=== PATIENT | male | born 1960 | race Caucasian/White ===

== ENCOUNTER 2017-05-17 07:14 | Emergency (ER) | payer BC ==
[2017-05-17] MEDS ORDERED: Metoclopramide 10 MG/2 ML SDV IVPUSH ONE (07:45)
[2017-05-17] MEDS ORDERED: Dextrose 5%-0.9% NaCl 1,000 ML IV SCH (07:45)
--- NOTE | 2017-05-17 07:45 | EDM.PDOC ---
ED HPI GENERAL MEDICAL PROBLEM - General Chief Complaint: Abdominal Pain Stated Complaint: ABDOMINAL PAIN Time Seen by Provider: 05/17/17 07:36 Source of Information: Reports: Patient History Limitations: Reports: No Limitations - History of Present Illness INITIAL COMMENTS - FREE TEXT/NARRATIVE: 57-year-old male presents to the ED with diffuse abdominal pain. He states that it came on shortly after supper on Wednesday, May 15. States it felt mostly in the right lower quadrant and subsequently has become more generalized particularly periumbilical across his abdomen. Described as a constant aching discomfort. Enough that it is no position comfortably slept very poorly the last 2 nights. Has been taking fluids but not eating much in terms of solids. He did vomit once the initial night of illness. This is mostly bilious and recently eaten food. No hematemesis. He's not had a bowel movement for 2 days. No fever associated chills. No previous abdominal surgery. He states he has a large bruise across his lower abdomen where he hit a kitchen chair back, 2 days ago. Note he is chronically anticoagulated with Coumadin due to atrial fibrillation. He has had previous ablation procedure for atrial fibrillation but still gets it intermittently. He has a defibrillator pacemaker right upper anterior chest. He states he is walking fairly well can get in and out of the vehicle fairly well without bumps in the remote hurting him. He has had no previous abdominal surgery has a history of diverticulitis 1. Onset: Gradual Onset Date: 05/15/17 Onset Time: 18:00 Duration: Hour(s): Location: Reports: Abdomen Quality: Reports: Ache Severity: Moderate Improves with: Reports: Rest Worsens with: Reports: Movement Context: Denies: Activity, Exercise, Lifting, Sick Contact, Trauma, Other Associated Symptoms: Reports: Loss of Appetite, Malaise, Nausea/Vomiting. Denies: No Other Symptoms, Confusion, Chest Pain, Cough, cough w sputum, Diaphoresis, Fever/Chills, Headaches, Rash, Seizure, Shortness of Breath, Syncope, Weakness (Vomited once the first day of illness.) Treatments TRIMMER HAND: Reports: Other (see below) (None.) Abdominal Pain Score (Numeric/FACES): 7 - Related Data Allergies Allergy/AdvReac Type Severity Reaction Status Date / Time No Known Allergies Allergy Verified 05/17/17 07:27 Home Meds: Home Meds Carvedilol 25 mg PO BID 05/17/17 [History] Cefdinir [Omnicef] 300 mg PO BID #20 cap 05/17/17 [Rx] Dofetilide 1 tab PO BID 05/17/17 [History] Lubiprostone [Amitiza] 1 tab PO BID PRN 05/17/17 [History] Lutein/Minerals/Vit A,C & E [Ocuvite] 1 tab PO DAILY 05/17/17 [History] Prednisone [IJD: predniSONE] 20 mg PO DAILY 05/17/17 [History] Warfarin Sodium [Jantoven] 2.5 mg PO ASDIRECTED 05/17/17 [History] Warfarin Sodium [Jantoven] 5 mg PO ASDIRECTED 05/17/17 [History] metroNIDAZOLE [Flagyl] 500 mg PO Q8H #21 tab 05/17/17 [Rx] Past Medical History Cardiovascular History: Reports: Arrhythmia. Denies: Afib Gastrointestinal History: Reports: Diverticulosis, Irritable Bowel Syndrome - Past Surgical History Cardiovascular Surgical History: Reports: Other (See Below) Other Cardiovascular Surgeries/Procedures: ablation, defibrillator Social & Family History - Tobacco Use Smoking Status *Q: Never Smoker - Caffeine Use Caffeine Use: Reports: None - Recreational Drug Use Recreational Drug Use: No - Living Situation & Occupation Living situation: Reports: Occupation: Employed ED ROS GENERAL - Review of Systems Review Of Systems: See Below Constitutional: Reports: Decreased Appetite. Denies: Fever, Chills, Malaise, Weakness, Fatigue, Weight Loss HEENT: Reports: No Symptoms Respiratory: Reports: No Symptoms Cardiovascular: Reports: Palpitations Endocrine: Reports: No Symptoms GI/Abdominal: Reports: No Symptoms, Abdominal Pain, Constipation (Has a history of constipation is on Amitiza.), Decreased Appetite, Nausea, Vomiting (Vomited once on the initial day of illness May 15.) : Reports: No Symptoms Musculoskeletal: Reports: No Symptoms Skin: Reports: Bruising Neurological: Reports: No Symptoms (Bruises easily due to being on Coumadin. Currently has a large bruise across his right lower abdomen.) Psychiatric: Reports: No Symptoms Hematologic/Lymphatic: Reports: No Symptoms Immunologic: Reports: No Symptoms ED EXAM, GI/ABD - Physical Exam Exam: See Below Exam Limited By: Combative/Threatening General Appearance: Alert, WD/WN, No Apparent Distress Eyes: Bilateral: Normal Appearance (No jaundice.) Throat/Mouth: Other Head: Atraumatic, Normocephalic (Tongue is dry and coated white.) Neck: Normal Inspection, Supple, Non-Tender, Full Range of Motion, Lymphadenopathy (L). No: Lymphadenopathy (R) Respiratory/Chest: No Respiratory Distress, Lungs Clear, Normal Breath Sounds, No Accessory Muscle Use Cardiovascular: Normal Peripheral Pulses, Regular Rate, Rhythm, No Edema, No Gallop, Bradycardia (58/m.) GI/Abdominal Exam: Soft (Bowel sounds are fairly active in all 4 quadrants.), Non-Tender, No Organomegaly, No Distention, Abnormal Bowel Sounds, Other (Has a large 7 cm linear ecchymoses with a 1.5 cm width right lower quadrant and evidence. He states he ran into the back of a wooden chair 3 days ago , bruises easily due to being on Coumadin.). No: Guarding, Rigid, Rebound (Male) Exam: No Hernia Back Exam: Normal Inspection, Full Range of Motion. No: CVA Tenderness (L), CVA Tenderness (R) Extremities: Normal Inspection, Non-Tender, No Pedal Edema, Normal Capillary Refill, Pedal Edema Neurological: Alert, Oriented, CN II-XII Intact, Normal Cognition, Normal Gait Psychiatric: Normal Affect, Normal Mood Skin Exam: Warm, Dry, Intact, Normal Color Course - Vital Signs Last Recorded V/S: Last Vital Signs Temp 36.2 C 05/17/17 07:23 Pulse 80 05/17/17 11:31 Resp 18 05/17/17 11:31 BP 155/93 H 05/17/17 07:23 Pulse Ox 97 05/17/17 11:31 - Orders/Labs/Meds Orders: Active Orders 24 hr Category Date Time Status Dextrose 5%-0.9% NaCl [Dextrose 5%-Normal Saline] 1,000 Med 05/17/17 07:45 Active ml IV ASDIRECTED Sodium Chloride 0.9% [Saline Flush] Med 05/17/17 08:56 Active 10 ml FLUSH ONETIME PRN Medication Orders Dextrose/Sodium Chloride (Dextrose 5%-Normal Saline) 1,000 mls @ 500 mls/hr IV ASDIRECTED LAW Last Admin: 05/17/17 07:55 Dose: 500 mls/hr Sodium Chloride (Saline Flush) 10 ml FLUSH ONETIME PRN PRN Reason: IV FLUSH Last Admin: 05/17/17 09:27 Dose: 10 ml Labs: Laboratory Tests 05/17/17 05/17/17 05/17/17 Range/Units 07:48 07:48 07:48 WBC 12.27 H (4.23-9.07) K/mm3 RBC 4.56 L (4.63-6.08) M/mm3 Hgb 14.2 (13.7-17.5) gm/L Hct 40.4 (40.1-51.0) % MCV 88.6 (79.0-92.2) fl MCH 31.1 (25.7-32.2) pg MCHC 35.1 (32.2-35.5) g/dl RDW Std Deviation 41.9 (35.1-43.9) fL Plt Count 181 (163-337) K/mm3 MPV 10.0 (9.4-12.3) fl Neutrophils % (Manual) 76 H (40-60) % Band Neutrophils % 0 (0-10) % Lymphocytes % (Manual) 12 L (20-40) % Atypical Lymphs % 0 % Monocytes % (Manual) 11 H (2-10) % Eosinophils % (Manual) 1 (0.8-7.0) % Basophils % (Manual) 0 L (0.2-1.2) Platelet Estimate Adequate RBC Morph Comment Normal PT 20.1 H (8.0-13.0) SECONDS INR 1.87 Sodium 135 L (136-145) mEq/L Potassium 3.7 (3.5-5.1) mEq/L Chloride 101 (98-107) mEq/L Carbon Dioxide 25 (21-32) mEq/L Anion Gap 12.7 (5-15) BUN 15 (7-18) mg/dL Creatinine 1.2 (0.7-1.3) mg/dL Est Cr Clr Drug Dosing 76.34 mL/min Estimated GFR (MDRD) > 60 (>60) mL/min BUN/Creatinine Ratio 12.5 L (14-18) Glucose 113 H (74-106) mg/dL Calcium 8.7 (8.5-10.1) mg/dL Total Bilirubin 0.7 (0.2-1.0) mg/dL AST 59 H (15-37) U/L ALT 59 (16-63) U/L Alkaline Phosphatase 48 (46-116) U/L C-Reactive Protein 2.8 H* (<1.0) mg/dL Total Protein 7.1 (6.4-8.2) g/dl Albumin 3.4 (3.4-5.0) g/dl Globulin 3.7 gm/dL Albumin/Globulin Ratio 0.9 L (1-2) Lipase 130 (73-393) U/L Urine Color (Yellow) Urine Appearance (Clear) Urine pH (5.0-8.0) Ur Specific Graham (1.005-1.030) Urine Protein (Negative) Urine Glucose (UA) (Negative) Urine Ketones (Negative) Urine Occult Blood (Negative) Urine Nitrite (Negative) Urine Bilirubin (Negative) Urine Urobilinogen (0.2-1.0) Ur Leukocyte Esterase (Negative) Urine RBC (0-5) /hpf Urine WBC (0-5) /hpf Ur Epithelial Cells (0-5) /hpf Urine Bacteria (FEW) /hpf Urine Mucus (FEW) /hpf 05/17/17 Range/Units 09:45 WBC (4.23-9.07) K/mm3 RBC (4.63-6.08) M/mm3 Hgb (13.7-17.5) gm/L Hct (40.1-51.0) % MCV (79.0-92.2) fl MCH (25.7-32.2) pg MCHC (32.2-35.5) g/dl RDW Std Deviation (35.1-43.9) fL Plt Count (163-337) K/mm3 MPV (9.4-12.3) fl Neutrophils % (Manual) (40-60) % Band Neutrophils % (0-10) % Lymphocytes % (Manual) (20-40) % Atypical Lymphs % % Monocytes % (Manual) (2-10) % Eosinophils % (Manual) (0.8-7.0) % Basophils % (Manual) (0.2-1.2) Platelet Estimate RBC Morph Comment PT (8.0-13.0) SECONDS INR Sodium (136-145) mEq/L Potassium (3.5-5.1) mEq/L Chloride (98-107) mEq/L Carbon Dioxide (21-32) mEq/L Anion Gap (5-15) BUN (7-18) mg/dL Creatinine (0.7-1.3) mg/dL Est Cr Clr Drug Dosing mL/min Estimated GFR (MDRD) (>60) mL/min BUN/Creatinine Ratio (14-18) Glucose (74-106) mg/dL Calcium (8.5-10.1) mg/dL Total Bilirubin (0.2-1.0) mg/dL AST (15-37) U/L ALT (16-63) U/L Alkaline Phosphatase (46-116) U/L C-Reactive Protein (<1.0) mg/dL Total Protein (6.4-8.2) g/dl Albumin (3.4-5.0) g/dl Globulin gm/dL Albumin/Globulin Ratio (1-2) Lipase (73-393) U/L Urine Color Yellow (Yellow) Urine Appearance Clear (Clear) Urine pH 6.0 (5.0-8.0) Ur Specific Graham 1.010 (1.005-1.030) Urine Protein Trace H (Negative) Urine Glucose (UA) Negative (Negative) Urine Ketones Negative (Negative) Urine Occult Blood Negative (Negative) Urine Nitrite Negative (Negative) Urine Bilirubin Negative (Negative) Urine Urobilinogen 0.2 (0.2-1.0) Ur Leukocyte Esterase Negative (Negative) Urine RBC 0-5 (0-5) /hpf Urine WBC 0-5 (0-5) /hpf Ur Epithelial Cells 0-5 (0-5) /hpf Urine Bacteria Not seen (FEW) /hpf Urine Mucus Few (FEW) /hpf Meds: Medications Generic Name Dose Route Start Last Admin Trade Name Freq PRN Reason Stop Dose Admin Dextrose/Sodium Chloride 1,000 mls @ 500 mls/hr 05/17/17 07:45 05/17/17 07:55 Dextrose 5%-Normal Saline IV 500 mls/hr ASDIRECTED LAW Administration Sodium Chloride 10 ml 05/17/17 08:56 05/17/17 09:27 Saline Flush FLUSH 10 ml ONETIME PRN Administration IV FLUSH Discontinued Medications Generic Name Dose Route Start Last Admin Trade Name Freq PRN Reason Stop Dose Admin Diatrizoate Meglum/Diatrizoate Sod 90 ml 05/17/17 08:56 05/17/17 09:27 Gastrografin 37% PO 05/17/17 08:57 90 ml ONETIME ONE Administration Cefoxitin Sodium 2 gm/ Premix 50 mls @ 100 mls/hr 05/17/17 09:34 05/17/17 09: 53 IV 05/17/17 10:03 100 mls/hr ONETIME ONE Administration Iopamidol 125 ml 05/17/17 08:56 05/17/17 09:27 Isovue-300 (61%) IVPUSH 05/17/17 08:57 110 ml ONETIME ONE Administration Meperidine HCl 50 mg 05/17/17 07:46 05/17/17 08:00 Demerol IV 05/17/17 07:47 Not Given ONETIME ONE Meperidine HCl 50 mg 05/17/17 07:57 05/17/17 07:58 Demerol IVPUSH 05/17/17 07:58 50 mg ONETIME STA Administration Meperidine HCl Confirm 05/17/17 07:51 05/17/17 08:01 Demerol Administered 05/17/17 07:52 Not Given Dose 50 mg .ROUTE .STK-MED ONE Metoclopramide HCl 10 mg 05/17/17 07:45 05/17/17 07:55 Reglan IVPUSH 05/17/17 07:46 10 mg ONETIME ONE Administration Metronidazole 500 mg 05/17/17 09:36 05/17/17 09:53 Flagyl PO 05/17/17 09:37 500 mg ONETIME ONE Administration - Radiology Interpretation Free Text/Narrative:: 57-year-old male presents to the ED for evaluation of abdominal pain. Patient developed acute onset of mostly right lower quadrant abdominal pain on the evening of May 15 after eating supper. Pain is persisted however since that time and is now become much more generalized particularly periumbilical. States it's a deep aching constant pain with some mild colicky component. Emesis the first night of illness but nothing since. He has been maintained primarily on clear fluids since that time. States he is voiding normally. Bowels have not moved for 2 days. Socially fever chills. On examination bowel sounds are active in all 4 quadrants and he has is soft to palpation with no organomegaly or peritoneal signs. Note that he is on Amitiza for irritable bowel syndrome with constipation dependency. Plan routine labs IV will be D5 normal saline at open Given Demerol 50 mg IV with Reglan 10 mg IV for pain and nausea relief. One view of the abdomen and routine labs including a lipase will be obtained - Re-Assessments/Exams Free Text/Narrative Re-Assessment/Exam: 05/17/17 08:08 KUB is essentially reveals a normal bowel gas pattern. There is air distending the colon throughout. There is a mild amount of stool in the cecum only. No bowel obstruction. Will therefore proceed with CT of the abdomen with oral and IV contrast presuming that his renal function is normal. Patient advised that we will therefore proceed with CT of the abdomen and pelvis with oral and IV contrast. 05/17/17 08:50 Labs reveal a total white count of 12.27 differential pending. Hemoglobin is good at 14.2 with hematocrit of 40.4. Platelets normal 181,000. PT is 20.1 with an INR of 1.87 i.e. slightly subtherapeutic but the patient is in sinus rhythm at this time sodium was 135 with potassium of 3.7. Chloride is 11 with a bicarbonate 25. Anion gap is 12.7. BUN is 15. Creatinine is 1.2. GFR is greater than 60. Glucose is 113 calcium is 8.7 bilirubin 0.7 AST slightly elevated at 59 ALT mildly elevated at 59 phosphatase normal at 48. C-reactive protein elevated at 2.8. Lipase normal at 1:30. 05/17/17 09:18 differential on the white count is 76% neutrophils and no bands reported. 05/17/17 09:36 CT scan of the abdomen and pelvis is back. Does reveal mild diverticulitis adjacent to the left side of the bladder. There is no signs of developing abscess. He does have a well-defined cyst within the right lobe of the left liver measuring about 4 mm. Small hiatal hernia is appreciated with reflux of gastroesophageal contrast. There are parapelvic cysts and cortical cysts are seen within both kidneys. There is a vague area of diminished enhancement is seen within the left upper kidney and within the left lower right kidney suggesting possible pyelonephritis. No retrognathia or retroperitoneal adenopathy or mesenteric abnormality is seen diffuse wall thickening is seen within the sigmoid colon this causes some luminal narrowing. Diverticulosis is seen within the sigmoid colon. He will therefore be given initial dose of cefoxitin 2 g IV as Levaquin interaction with one of his medications. I will then place him on Flagyl 500 mg orally as well. 05/17/17 10:10 urinalysis is normal. The radiate all just report is back and he does not mention diverticulitis but I think he missed the inflammation adjacent to the left side of the bladder. He does have a large peripelvic cyst on the right side but there is no clinical evidence of urinary tract infection. Patient will be discharged home on Flagyl 500 mg 3 times a day for 7 days and Omnicef 300 mg twice daily for the next 8 days as well. Departure - Departure Time of Disposition: 11:20 Disposition: Home, Self-Care 01 Condition: Fair Clinical Impression: Diverticulitis large intestine Qualifiers: Diverticulitis bleeding: without bleeding Diverticulitis complication: without perforation or abscess Qualified Code(s): K57.32 - Diverticulitis of large intestine without perforation or abscess without bleeding - Discharge Information Prescriptions: Cefdinir [Omnicef] 300 mg PO BID #20 cap metroNIDAZOLE [Flagyl] 500 mg PO Q8H #21 tab Instructions: Diverticulitis, [id number] Referrals: Talon Dominguez Jr, MD [Primary Care Provider] - Forms: ED Department Discharge Additional Instructions: Evaluation in the emergency him today in regards to gradually worsening lower abdominal pain and then diffuse abdominal pain over the last 2 and half days. [place] reveals tenderness across the lower abdomen without peritoneal signs. An x -ray of the head was within normal limits. Lab work shows a mildly elevated white blood cell count with low-grade infection suspect. CT scan of the abdomen and pelvis was therefore performed and it identifies a area of early diverticulitis involving the sigmoid colon adjacent to your bladder on the left side. Of note this area of the colon appears to be quite narrowed. May be from previous infection but a sigmoidoscopy is indicated within the next 6 weeks or so to make sure that there is nothing else going on in this area to cause a narrowing. Treatment was started in the ED with intravenous antibiotic cefoxitin. Flagyl 500 mg was also given by mouth. Treatment at home is Flagyl 500 mg by mouth 3 times daily for the next 7 days and Omnicef 300 mg twice daily for 10 days. The next tablet of this would be due at [facility]. The next tablet a Flagyl should be taken around 5 PM and again before bed tonight. Due to the possible interaction with antibiotics and your Coumadin you need a PT/INR check up on Wednesday this week to make sure that it is not super elevated. INR today is a little on the low side at 1.85. I doubt therefore that it will elevate enough on the antibodies to be problematic. - My Orders Last 24 Hours: My Active Orders 05/17/17 07:45 Dextrose 5%-0.9% NaCl [Dextrose 5%-Normal Saline] 1,000 ml IV ASDIRECTED 05/17/17 08:56 Sodium Chloride 0.9% [Saline Flush] 10 ml FLUSH ONETIME PRN - Assessment/Plan Last 24 Hours: My Active Orders 05/17/17 07:45 Dextrose 5%-0.9% NaCl [Dextrose 5%-Normal Saline] 1,000 ml IV ASDIRECTED 05/17/17 08:56 Sodium Chloride 0.9% [Saline Flush] 10 ml FLUSH ONETIME PRN
[2017-05-17] MEDS ORDERED: Meperidine PF 75 MG/ML Syringe IV ONE (07:46)
[2017-05-17] MEDS ORDERED: Meperidine PF 50 MG/ML Syringe ONE (07:51)
[2017-05-17] MEDS ORDERED: Meperidine PF 50 MG/ML Syringe IVPUSH STA (07:57)
[2017-05-17] MEDS ORDERED: Sodium Chloride 0.9% 10 ML Syringe FLUSH PRN (08:56)
[2017-05-17] MEDS ORDERED: Iopamidol 612 MG/ML 150 ML Bottle IVPUSH ONE (08:56)
[2017-05-17] MEDS ORDERED: Diatrizoate Meglumine/Diatrizoate Sodium 37% 120 ML Bottle PO ONE (08:56)
[2017-05-17] MEDS ORDERED: cefOXitin 2 GM in Premix Bag 1 BAG IV ONE (09:34)
[2017-05-17] MEDS ORDERED: metroNIDAZOLE 500 MG Tab PO ONE (09:36)
--- NOTE | 2017-05-17 10:01 | CR ---
Abdomen: Supine view of the abdomen was obtained. Comparison: No previous study. Phlebolith is seen within the pelvis. Joint space narrowing is noted within both hips. Mild degenerative change is scattered within the spine. Bowel gas pattern appears normal. No discrete soft tissue abnormality is seen. AICD is partially visualized. Impression: 1. Incidental findings. Nothing acute is seen. Diagnostic code #2
--- NOTE | 2017-05-17 10:01 | CT ---
CT abdomen and pelvis Technique: Multiple axial sections were obtained from above the dome of the diaphragm inferiorly through the pubic symphysis. Intravenous and oral contrast has been given. Delayed images were also obtained through the abdomen and pelvis. Comparison: Recent abdominal x-ray performed earlier on the same day (7:41 AM). No prior CT abdomen or pelvis exam. Findings: Visualized lung bases are clear. Minimal low-density lesion is seen within the posterior right lobe of the liver measuring about 4 mm. This most likely represents a small cyst. No additional abnormality is seen with within the liver. Small hiatal hernia is seen with gastroesophageal reflux of contrast. Spleen appears within normal limits. Adrenal glands show no nodule. Pancreas appears within normal limits. Parapelvic cysts and cortical cysts are seen within both kidneys. Vague area of diminished enhancement is seen within the left upper kidney and within the lower right kidney. Findings suggest the possibility of pyelonephritis. Aorta shows no aneurysmal dilatation. No retroperitoneal adenopathy or mesenteric abnormalities are seen. Diffuse wall thickening is seen within the sigmoid colon. This causes luminal narrowing. Diverticulosis is seen within the sigmoid colon. Delayed images shows contrast within nondilated ureters and bladder. Impression: 1. Areas of diminished enhancement within both kidneys. Findings are suspicious for change from pyelonephritis. 2. Significant bowel wall thickening within the sigmoid colon with diverticulosis. Bowel wall thickening may relate to chronic diverticulosis but endoscopy is recommended to rule out neoplasm. 3. Other incidental findings. Diagnostic code #9
== END 2017-05-17 11:25 | disposition home or self-care (01) ==
LOC: JD.ED 07:14
DX: K57.32 Diverticulitis of large intestine without perforation or abscess without bleeding (principal); Z79.899 Other long term (current) drug therapy
CPT/HCPCS: 36415; 74018; 74177; 80053; 81001; 83690; 85025; 85610; 86140; 96361; 96365; 96375; 99285; A9270; J0694; J2175; J2765; J7042; J7050; Q9963; Q9967; 99284

== ENCOUNTER 2017-06-06 16:44 | Emergency (ER) | payer BC ==
[2017-06-06] MEDS ORDERED: Sodium Chloride 0.9% 1,000 ML IV STA (17:07)
[2017-06-06] MEDS ORDERED: Sodium Chloride 0.9% 10 ML Syringe FLUSH PRN (17:07)
[2017-06-06] MEDS ORDERED: Ondansetron 4 MG/2 ML SDV IVPUSH ONE (17:07)
[2017-06-06] MEDS ORDERED: HYDROmorphone 0.5 MG/0.5 ML SYRINGE IVPUSH ONE (17:09)
--- NOTE | 2017-06-06 18:34 | EDM.PDOC ---
ED HPI GENERAL MEDICAL PROBLEM - General Chief Complaint: Abdominal Pain Stated Complaint: STOMACH PROBLEMS Time Seen by Provider: 06/06/17 17:00 Source of Information: Reports: Patient History Limitations: Reports: No Limitations - History of Present Illness INITIAL COMMENTS - FREE TEXT/NARRATIVE: The patient presents with lower abdominal pain. This started this morning. He also has nausea and vomiting and some diarrhea. He was seen here about 3 weeks ago on 05/17/17. He had a CT done and he was found to have diverticulitis. He had inflammation of his sigmoid colon with diverticulosis. His kidneys also showed signs of pyelonephritis but his urine was negative and he had no flank pain. He was on antibiotics and he got better but the pain was not gone. The pain increased this morning. He has no fever but he did have some chills. He has no fever, chills or cough. He has no dysuria. He has a pacemaker and he is on warfarin for intermittent A-fib. He had an ablation months ago and he is still on the warfarin until they know he is out of the A-fib for good. The patient had a colonoscopy about 5 1/2 years ago and it was fine. Onset: Gradual Duration: Hour(s): Location: Reports: Abdomen Quality: Reports: Sharp Severity: Moderate Improves with: Reports: None Worsens with: Reports: None Associated Symptoms: Reports: Fever/Chills, Nausea/Vomiting. Denies: Chest Pain , Cough, Headaches, Shortness of Breath lower abdomen Pain Score (Numeric/FACES): 10 - Related Data Allergies Allergy/AdvReac Type Severity Reaction Status Date / Time No Known Allergies Allergy Verified 06/06/17 16:58 Home Meds: Home Meds Carvedilol 25 mg PO BID 05/17/17 [History] Dofetilide 1 tab PO BID 05/17/17 [History] Lubiprostone [Amitiza] 1 tab PO BID PRN 05/17/17 [History] Lutein/Minerals/Vit A,C & E [Ocuvite] 1 tab PO DAILY 05/17/17 [History] Prednisone [IJD: predniSONE] 10 mg PO DAILY 05/17/17 [History] Warfarin Sodium [Jantoven] 2.5 mg PO ASDIRECTED 05/17/17 [History] Warfarin Sodium [Jantoven] 5 mg PO ASDIRECTED 05/17/17 [History] Past Medical History HEENT History: Reports: Impaired Vision Cardiovascular History: Reports: Arrhythmia Gastrointestinal History: Reports: Diverticulosis, Irritable Bowel Syndrome - Past Surgical History Cardiovascular Surgical History: Reports: Other (See Below) Other Cardiovascular Surgeries/Procedures: ablation, defibrillator GI Surgical History: Reports: Colonoscopy Social & Family History - Family History Family Medical History: Noncontributory - Tobacco Use Smoking Status *Q: Never Smoker Second Hand Smoke Exposure: No - Caffeine Use Caffeine Use: Reports: None - Recreational Drug Use Recreational Drug Use: No - Living Situation & Occupation Living situation: Reports: Occupation: Employed ED ROS GENERAL - Review of Systems Review Of Systems: See Below Constitutional: Reports: Chills. Denies: Fever HEENT: Reports: No Symptoms Respiratory: Reports: No Symptoms Cardiovascular: Reports: No Symptoms Endocrine: Reports: No Symptoms GI/Abdominal: Reports: Abdominal Pain, Diarrhea, Nausea, Vomiting : Reports: No Symptoms Musculoskeletal: Reports: No Symptoms ED EXAM, GI/ABD - Physical Exam Exam: See Below Exam Limited By: No Limitations General Appearance: Alert, No Apparent Distress Ears: Normal External Exam Nose: Normal Inspection Head: Atraumatic, Normocephalic Neck: Normal Inspection Respiratory/Chest: No Respiratory Distress, Lungs Clear, Normal Breath Sounds Cardiovascular: Regular Rate, Rhythm, No Edema, No Murmur GI/Abdominal Exam: Soft, No Organomegaly, No Mass, Tender (Mild to moderate pain to the lower abdomen.) Back Exam: Normal Inspection Extremities: Normal Inspection Course - Vital Signs Last Recorded V/S: Last Vital Signs Temp 97.7 F 06/06/17 16:50 Pulse 60 06/06/17 16:50 Resp 18 06/06/17 16:50 BP 183/104 H 06/06/17 16:50 Pulse Ox 98 06/06/17 16:50 - Orders/Labs/Meds Orders: Active Orders 24 hr Category Date Time Status Peripheral IV Care [RC] . DIRECTED Care 06/06/17 17:07 Active Abdomen Series w Chest 1V [CR] Stat Exams 06/06/17 17:07 Taken UA W/MICROSCOPIC [URIN] Stat Lab 06/06/17 17:07 Ordered Sodium Chloride 0.9% [Saline Flush] Med 06/06/17 17:07 Active 10 ml FLUSH ASDIRECTED PRN ED Antiemetic Medication Reflex [OM.PC] Stat Oth 06/06/17 17:07 Ordered Peripheral IV Insertion Adult [OM.PC] Stat Oth 06/06/17 17:07 Ordered Medication Orders Sodium Chloride (Saline Flush) 10 ml FLUSH ASDIRECTED PRN PRN Reason: Keep Vein Open Last Admin: 06/06/17 17:18 Dose: 10 ml Labs: Laboratory Tests 06/06/17 06/06/17 Range/Units 17:05 17:05 WBC 9.80 H (4.23-9.07) K/mm3 RBC 4.60 L (4.63-6.08) M/mm3 Hgb 14.1 (13.7-17.5) gm/L Hct 40.2 (40.1-51.0) % MCV 87.4 (79.0-92.2) fl MCH 30.7 (25.7-32.2) pg MCHC 35.1 (32.2-35.5) g/dl RDW Std Deviation 39.8 (35.1-43.9) fL Plt Count 201 (163-337) K/mm3 MPV 9.5 (9.4-12.3) fl Neut % (Auto) 77.3 H (34.0-67.9) % Lymph % (Auto) 10.3 L (21.8-53.1) % [place] % (Auto) 10.2 (5.3-12.2) % Eos % (Auto) 1.8 (0.8-7.0) Baso % (Auto) 0.2 (0.1-1.2) % Neut # (Auto) 7.57 H (1.78-5.38) K/mm3 Lymph # (Auto) 1.01 L (1.32-3.57) K/mm3 [place] # (Auto) 1.00 H (0.30-0.82) K/mm3 Eos # (Auto) 0.18 (0.04-0.54) K/mm3 Baso # (Auto) 0.02 (0.01-0.08) K/mm3 Sodium 140 (136-145) mEq/L Potassium 3.7 (3.5-5.1) mEq/L Chloride 105 (98-107) mEq/L Carbon Dioxide 24 (21-32) mEq/L Anion Gap 14.7 (5-15) BUN 16 (7-18) mg/dL Creatinine 1.0 (0.7-1.3) mg/dL Est Cr Clr Drug Dosing 91.61 mL/min Estimated GFR (MDRD) > 60 (>60) mL/min BUN/Creatinine Ratio 16.0 (14-18) Glucose 113 H (74-106) mg/dL Calcium 9.1 (8.5-10.1) mg/dL Total Bilirubin 0.3 (0.2-1.0) mg/dL AST 19 (15-37) U/L ALT 28 (16-63) U/L Alkaline Phosphatase 52 (46-116) U/L Total Protein 7.1 (6.4-8.2) g/dl Albumin 3.3 L (3.4-5.0) g/dl Globulin 3.8 gm/dL Albumin/Globulin Ratio 0.9 L (1-2) Lipase 128 (73-393) U/L Meds: Medications Generic Name Dose Route Start Last Admin Trade Name Freq PRN Reason Stop Dose Admin Sodium Chloride 10 ml 06/06/17 17:07 06/06/17 17:18 Saline Flush FLUSH 10 ml ASDIRECTED PRN Administration Keep Vein Open Discontinued Medications Generic Name Dose Route Start Last Admin Trade Name Freq PRN Reason Stop Dose Admin Hydromorphone HCl 0.5 mg 06/06/17 17:09 06/06/17 17:18 Dilaudid IVPUSH 06/06/17 17:10 0.5 mg ONETIME ONE Administration Sodium Chloride 1,000 mls @ 1,000 mls/hr 06/06/17 17:07 06/06/17 17:17 Normal Saline IV 06/06/17 18:06 1,000 mls/hr .BOLUS STA Administration Ondansetron HCl 4 mg 06/06/17 17:07 06/06/17 17:17 Zofran IVPUSH 06/06/17 17:08 4 mg ONETIME ONE Administration - Re-Assessments/Exams Free Text/Narrative Re-Assessment/Exam: 06/06/17 18:34 I ordered an IV NS 1L bolus, zofran 4mg IV, dilaudid 0.5mg IV, labs, UA and an x -ray of his abdomen. His WBC is improved from 12 to 9.8. His CMP looks good. His lipase is negative. His x-ray does not show any free air or sign of obstruction. He feels better. I called Dr Lea our general surgeon front office secretary to talk about what is going on. He recommended a CT of his abdomen and pelvis to see if he has diverticulitis or something else. He also said he will need a colonoscopy but it would be good to wait a month until his bowel heals for the colonoscopy. I talked to the patient about doing the CT to know for sure. He did not want to get that done today. Tomorrow he has a procedure with dye to check on his vein where the lead for his pacemaker is. They will need to replace that soon. I will put him on 5 days of antibiotics and have him follow up with Dr Dominguez for the CT or he can come back here for it. Departure - Departure Time of Disposition: 18:40 Disposition: Home, Self-Care 01 Condition: Good Clinical Impression: Abdominal pain Qualifiers: Abdominal location: lower abdomen, unspecified Qualified Code(s): R10.30 - Lower abdominal pain, unspecified - Discharge Information Referrals: Talon Dominguez Jr, MD [Primary Care Provider] - 1 Week Additional Instructions: Take the flagyl and cipro for 7 days. The cipro is 2 times per day and the flagyl is 3 times per day. You may also take the zofran every 6 hours if you have nausea or vomiting. You can also take some hydrocodone for pain if you need to. Good luck with your tests tomorrow and follow up with Dr Dominguez this next week or you may come back here. - My Orders Last 24 Hours: My Active Orders 06/06/17 17:07 Peripheral IV Care [RC] . DIRECTED Abdomen Series w Chest 1V [CR] Stat UA W/MICROSCOPIC [URIN] Stat Sodium Chloride 0.9% [Saline Flush] 10 ml FLUSH ASDIRECTED PRN ED Antiemetic Medication Reflex [OM.PC] Stat Peripheral IV Insertion Adult [OM.PC] Stat - Assessment/Plan Last 24 Hours: My Active Orders 06/06/17 17:07 Peripheral IV Care [RC] . DIRECTED Abdomen Series w Chest 1V [CR] Stat UA W/MICROSCOPIC [URIN] Stat Sodium Chloride 0.9% [Saline Flush] 10 ml FLUSH ASDIRECTED PRN ED Antiemetic Medication Reflex [OM.PC] Stat Peripheral IV Insertion Adult [OM.PC] Stat
--- NOTE | 2017-06-07 07:38 | CR ---
Abdominal series: Frontal view of the chest is obtained as well as supine and upright views of the abdomen. Comparison: Prior abdominal x-ray of 05/17/17. Calcification compatible with phlebolith is seen within the left lower pelvis. Bowel gas pattern appears normal. No soft tissue abnormality is seen. No free air is seen. Heart size is normal. Tortuous thoracic aorta is seen. AICD is present. Lungs show no acute parenchymal change. Impression: 1. Incidental findings. Nothing acute is identified. Diagnostic code #2
== END 2017-06-06 18:54 | disposition home or self-care (01) ==
LOC: JD.ED 16:44
DX: R10.30 Lower abdominal pain, unspecified (principal); Z79.899 Other long term (current) drug therapy
CPT/HCPCS: 36415; 74022; 80053; 83690; 85025; 96361; 96374; 96375; 99284; J1170; J2405; J7040; J7050

== ENCOUNTER 2020-09-08 08:01 | Emergency (ER) | payer BC ==
[2020-09-08] MEDS ORDERED: Metoclopramide 10 MG/2 ML SDV IVPUSH ONE (08:28)
[2020-09-08] MEDS ORDERED: Dextrose 5%-0.9% NaCl 1,000 ML IV SCH (08:30)
--- NOTE | 2020-09-08 08:31 | EDM.PDOC ---
ED HPI GENERAL MEDICAL PROBLEM - General Chief Complaint: Gastrointestinal Problem Stated Complaint: LOWER ABDOMINAL PAIN Time Seen by Provider: 09/08/20 08:27 Source of Information: Reports: Patient, Family (spouse) History Limitations: Reports: No Limitations - History of Present Illness INITIAL COMMENTS - FREE TEXT/NARRATIVE: 60-year-old male presents to the ED in the accompaniment of his . He presents with diffuse left lower quadrant suprapubic abdominal discomfort. He states it was very severe last night associate with abdominal cramping pain and diarrhea. Diarrhea contains some blood and mucus. He believes he had some chills last evening but no defined fever. He has a history of diverticulitis at least once in the past he believes in 2018. He believes this lower abdominal discomfort has been gradually brewing for the better part of 2 weeks which is atypical for the development of a diverticulitis. He states current pain is down to a 1 or 2 out of 10 and was 10 out of 10 last night. No pain radiating to his back. Lower abdominal associated cramping pain just prior to having a bowel movement. Estimates that he has had 6-7 loose stools overnight. Patient does not believe he has had a colonoscopy since last bout of diverticulitis. Onset: Gradual, Unknown/Unsure (Feels like left lower quadrant abdominal pain is been gradually worsening over period of 2 weeks. Much worse in the last 24 to 36 hours.) Onset Date: 09/07/20 Duration: Hour(s):, Getting Worse Location: Reports: Abdomen (Left lower quadrant of the abdomen and across the suprapubic area of the abdomen and no radiation into the back.) Quality: Reports: Ache, Other Severity: Moderate (Strong colicky component to the pain at times.) Improves with: Reports: Rest, Other (Somewhat better after having diarrhea stool.) Worsens with: Reports: None Context: Denies: Activity, Exercise, Lifting, Sick Contact, Trauma, Other Associated Symptoms: Reports: Malaise, Weakness. Denies: No Other Symptoms, Confusion, Chest Pain, Cough, cough w sputum, Diaphoresis, Headaches, Loss of Appetite, Nausea/Vomiting, Rash, Seizure, Shortness of Breath, Syncope, Other Bilateral Lower Abdomen Pain Score (Numeric/FACES): 2 - Related Data Allergies Allergy/AdvReac Type Severity Reaction Status Date / Time No Known Allergies Allergy Verified 09/08/20 08:31 Home Meds: Home Meds Dofetilide 1 tab PO BID 05/17/17 [History] Lubiprostone [Amitiza] 1 tab PO BID PRN 05/17/17 [History] Lutein/Minerals/Vit A,C & E [Ocuvite] 1 tab PO DAILY 05/17/17 [History] carvediloL [Carvedilol] 25 mg PO BID 05/17/17 [History] dilTIAZem HCL [Diltiazem 12Hr ER] 120 mg PO DAILY 09/08/20 [History] levoFLOXacin [Levaquin] 500 mg PO DAILY #9 tab 09/08/20 [Rx] metroNIDAZOLE [Flagyl] 500 mg PO Q8H #21 tab 09/08/20 [Rx] Past Medical History HEENT History: Reports: Impaired Vision Cardiovascular History: Reports: Arrhythmia, Other (See Below) (Patient has undergone cardiac ablation procedures x2 for atrial fibrillation. He is currently off all antiarrhythmics and is maintained on diltiazem at present for blood pressure and rate control. He is no longer on Coumadin either.) Gastrointestinal History: Reports: Diverticulosis, Irritable Bowel Syndrome - Past Surgical History Cardiovascular Surgical History: Reports: Other (See Below) Other Cardiovascular Surgeries/Procedures: ablation, defibrillator GI Surgical History: Reports: Colonoscopy Social & Family History - Family History Family Medical History: No Pertinent Family History - Caffeine Use Caffeine Use: Reports: None - Living Situation & Occupation Living situation: Reports: Occupation: Employed ED ROS GENERAL - Review of Systems Review Of Systems: See Below Constitutional: Reports: Chills, Malaise, Weakness, Fatigue, Decreased Appetite. Denies: Fever HEENT: Reports: No Symptoms Respiratory: Reports: No Symptoms Cardiovascular: Reports: Blood Pressure Problem, Other (Patient has had cardiac ablation x2 for atrial fibrillation and is no longer on Coumadin.) Endocrine: Reports: Fatigue GI/Abdominal: Reports: Abdominal Pain, Diarrhea (See history of present illness.), Hematochezia : Reports: No Symptoms Musculoskeletal: Reports: No Symptoms Skin: Reports: No Symptoms Neurological: Reports: No Symptoms Psychiatric: Reports: No Symptoms Hematologic/Lymphatic: Reports: No Symptoms Immunologic: Reports: No Symptoms ED EXAM, GI/ABD - Physical Exam Exam: See Below Exam Limited By: No Limitations General Appearance: Alert, WD/WN, No Apparent Distress, Other (Temperature is 36.8 degrees but he feels warmer than this. Heart rate was 60 in sinus respiratory is 18 with O2 sats of 96% room air BP is 130/82.) Eyes: Bilateral: Normal Appearance (No scleral icterus or blepharal pallor.) Throat/Mouth: Other Respiratory/Chest: No Respiratory Distress (Tongue is mildly dry and coated.), Lungs Clear, Normal Breath Sounds, No Accessory Muscle Use Cardiovascular: Normal Peripheral Pulses, Regular Rate, Rhythm, No Edema, No Gallop, No Murmur, No Rub GI/Abdominal Exam: Normal Bowel Sounds, Soft, No Organomegaly, No Mass, Pelvis Stable, Tender (Mild tenderness elicited left lower quadrant over the sigmoid colon), Other (No surgical scars). No: Guarding, Rigid ( and suprapubically without rebound or guarding), Rebound (Male) Exam: No Hernia Back Exam: Normal Inspection, Full Range of Motion. No: CVA Tenderness (L), CVA Tenderness (R) Extremities: Normal Inspection, Normal Range of Motion, Non-Tender, No Pedal Edema Neurological: Alert, Oriented, CN II-XII Intact, Normal Cognition, Normal Gait Psychiatric: Normal Affect, Normal Mood Skin Exam: Warm, Dry, Intact, Normal Color, No Rash #1 Interpretation EKG Date: 09/08/20 Time: 09:04 Rhythm: NSR Rate (Beats/Min): 60 [place]: LAD-Left [place] Deviation P-Wave: Enlarged (Mild left axis deviation of -17 degrees) QRS: Other (consider left atrial hypertrophy nonspecific intraventricular conduction delay with delayed R wave transition) ST-T: Other (T wave inversion V2 to V4 nonspecific) QT: Prolonged EKG Interpretation Comments: Abnormal ECG Course - Vital Signs Last Recorded V/S: Last Vital Signs Temp 36.8 C 09/08/20 08:10 Pulse 59 L 09/08/20 08:10 Resp 18 09/08/20 08:10 BP 130/82 09/08/20 08:10 Pulse Ox 96 09/08/20 08:10 - Orders/Labs/Meds Orders: Active Orders 24 hr Category Date Time Status EKG Documentation Completion [RC] STAT Care 09/08/20 08:42 Active Abdomen Pelvis w Cont [CT] Stat Exams 09/08/20 08:29 Taken CULTURE BLOOD [BC] Stat Lab 09/08/20 08:51 Received CULTURE BLOOD [BC] Stat Lab 09/08/20 09:02 Received Dextrose 5%-0.9% NaCl [Dextrose 5%-Normal Saline] 1,000 Med 09/08/20 08:30 Active ml IV ASDIRECTED Blood Culture x2 Reflex Set [OM.PC] Stat Oth 09/08/20 08:28 Ordered Medication Orders Dextrose/Sodium Chloride (Dextrose 5%-Normal Saline) 1,000 mls @ 500 mls/hr IV ASDIRECTED LAW Last Admin: 09/08/20 09:14 Dose: 500 mls/hr Documented by: HERMMIC Labs: Laboratory Tests 09/08/20 09/08/20 09/08/20 Range/Units 08:38 08:51 08:51 WBC 9.43 H (4.23-9.07) K/mm3 RBC 4.53 L (4.63-6.08) M/mm3 Hgb 14.2 (13.7-17.5) gm/dl Hct 40.4 (40.1-51.0) % MCV 89.2 (79.0-92.2) fl MCH 31.3 (25.7-32.2) pg MCHC 35.1 (32.2-35.5) g/dl RDW Std Deviation 42.4 (35.1-43.9) fL Plt Count 182 (163-337) K/mm3 MPV 10.4 (9.4-12.3) fl Neutrophils % (Manual) 74 H (40-60) % Band Neutrophils % 5 (0-10) % Lymphocytes % (Manual) 11 L (20-40) % Atypical Lymphs % 0 % Monocytes % (Manual) 9 (2-10) % Eosinophils % (Manual) 0 L (0.8-7.0) % Basophils % (Manual) 1 (0.2-1.2) Platelet Estimate Adequate RBC Morph Comment Normal Sodium 141 (136-145) mEq/L Potassium 4.1 (3.5-5.1) mEq/L Chloride 106 (98-107) mEq/L Carbon Dioxide 24 (21-32) mEq/L Anion Gap 15.1 H (5-15) BUN 16 (7-18) mg/dL Creatinine 1.0 (0.7-1.3) mg/dL Est Cr Clr Drug Dosing 88.38 mL/min Estimated GFR (MDRD) > 60 (>60) mL/min BUN/Creatinine Ratio 16.0 (14-18) Glucose 109 H (70-99) mg/dL Lactic Acid (0.4-2.0) mmol/L Calcium 8.6 (8.5-10.1) mg/dL Magnesium 2.1 (1.8-2.4) mg/dL Total Bilirubin 0.5 (0.2-1.0) mg/dL AST 12 L (15-37) U/L ALT 21 (16-63) U/L Alkaline Phosphatase 73 (46-116) U/L C-Reactive Protein < 0.2 (<1.0) mg/dL Total Protein 7.2 (6.4-8.2) g/dl Albumin 3.5 (3.4-5.0) g/dl Globulin 3.7 gm/dL Albumin/Globulin Ratio 1.0 (1-2) Lipase 73 (73-393) U/L Urine Color Yellow (Yellow) Urine Appearance Clear (Clear) Urine pH 7.0 (5.0-8.0) Ur Specific [place] 1.025 (1.005-1.030) Urine Protein Negative (Negative) Urine Glucose (UA) Negative (Negative) Urine Ketones Negative (Negative) Urine Occult Blood Negative (Negative) Urine Nitrite Negative (Negative) Urine Bilirubin Negative (Negative) Urine Urobilinogen 0.2 (0.2-1.0) Ur Leukocyte Esterase Negative (Negative) Urine RBC Not seen (0-5) /hpf Urine WBC Not seen (0-5) /hpf Ur Squamous Epith Cells 0-5 (0-5) /hpf Amorphous Sediment Few H (NOT SEEN) /hpf Urine Bacteria Few (FEW) /hpf Urine Mucus Few (FEW) /hpf 09/08/20 Range/Units 08:51 WBC (4.23-9.07) K/mm3 RBC (4.63-6.08) M/mm3 Hgb (13.7-17.5) gm/dl Hct (40.1-51.0) % MCV (79.0-92.2) fl MCH (25.7-32.2) pg MCHC (32.2-35.5) g/dl RDW Std Deviation (35.1-43.9) fL Plt Count (163-337) K/mm3 MPV (9.4-12.3) fl Neutrophils % (Manual) (40-60) % Band Neutrophils % (0-10) % Lymphocytes % (Manual) (20-40) % Atypical Lymphs % % Monocytes % (Manual) (2-10) % Eosinophils % (Manual) (0.8-7.0) % Basophils % (Manual) (0.2-1.2) Platelet Estimate RBC Morph Comment Sodium (136-145) mEq/L Potassium (3.5-5.1) mEq/L Chloride (98-107) mEq/L Carbon Dioxide (21-32) mEq/L Anion Gap (5-15) BUN (7-18) mg/dL Creatinine (0.7-1.3) mg/dL Est Cr Clr Drug Dosing mL/min Estimated GFR (MDRD) (>60) mL/min BUN/Creatinine Ratio (14-18) Glucose (70-99) mg/dL Lactic Acid 0.7 (0.4-2.0) mmol/L Calcium (8.5-10.1) mg/dL Magnesium (1.8-2.4) mg/dL Total Bilirubin (0.2-1.0) mg/dL AST (15-37) U/L ALT (16-63) U/L Alkaline Phosphatase (46-116) U/L C-Reactive Protein (<1.0) mg/dL Total Protein (6.4-8.2) g/dl Albumin (3.4-5.0) g/dl Globulin gm/dL Albumin/Globulin Ratio (1-2) Lipase (73-393) U/L Urine Color (Yellow) Urine Appearance (Clear) Urine pH (5.0-8.0) Ur Specific [place] (1.005-1.030) Urine Protein (Negative) Urine Glucose (UA) (Negative) Urine Ketones (Negative) Urine Occult Blood (Negative) Urine Nitrite (Negative) Urine Bilirubin (Negative) Urine Urobilinogen (0.2-1.0) Ur Leukocyte Esterase (Negative) Urine RBC (0-5) /hpf Urine WBC (0-5) /hpf Ur Squamous Epith Cells (0-5) /hpf Amorphous Sediment (NOT SEEN) /hpf Urine Bacteria (FEW) /hpf Urine Mucus (FEW) /hpf Meds: Medications Generic Name Dose Route Start Last Admin Trade Name Bryan PRN Reason Stop Dose Admin Dextrose/Sodium Chloride 1,000 mls @ 500 mls/hr 09/08/20 08:30 09/08/20 09:14 Dextrose 5%-Normal Saline IV 500 mls/hr ASDIRECTED LAW Administration Discontinued Medications Generic Name Dose Route Start Last Admin Trade Name Bryan PRN Reason Stop Dose Admin Hydromorphone HCl 1 mg 09/08/20 10:15 09/08/20 10:20 Hydromorphone 1 Mg/Ml Syringe IVPUSH 09/08/20 10:16 1 mg ONETIME ONE Administration Levofloxacin/Dextrose 750 mg/ 150 mls @ 100 mls/hr 09/08/20 08:38 09/08/20 09:28 Premix IV 09/08/20 10:07 100 mls/hr ONETIME ONE Administration Metoclopramide HCl 7.5 mg 09/08/20 08:28 09/08/20 09:11 Metoclopramide 10 Mg/2 Ml Sdv IVPUSH 09/08/20 08:29 7.5 mg ONETIME ONE Administration Metronidazole 500 mg 09/08/20 11:57 Metronidazole 500 Mg Tab PO 09/08/20 11:58 ONETIME ONE - Radiology Interpretation Free Text/Narrative:: 60-year-old male presents to the ED with gradually worsening left lower quadrant and suprapubic abdominal pain associate with the development of diarrhea particularly over the last 24 hours with hematochezia and mucus and blood per rectum. Has a history of diverticulitis with the last bout in 2018. Does clinically felt febrile. [place] chilled during the night but no defined fever. Current pain is down to 1-2 out of 10 and was 10 out of 10 earlier last night. Examination reveals localized tenderness of the left lower quadrant and suprapubically without rebound or guarding. Plan will pursue septic work-up with blood cultures x2 and a serum lactic acid. CRP to be done as well. CT of the abdomen will be done with oral and IV contrast. Once blood cultures x2 have been collected he will be started on Levaquin 750 mg IV. - Re-Assessments/Exams Free Text/Narrative Re-Assessment/Exam: 09/08/20 09:44 Total white count is 9.43. Differential pending. Hemoglobin 14.2 with hematocrit of 40.4. Platelet count 282,000. Sodium 141 with potassium of 4.1. Chloride 106 with a bicarb of 24. Anion gap is 15.1. BUN is 16 with a creatinine of 1.0 and a GFR greater than 60. Glucose is 109. Lactic acid 0.7. Calcium 8.6. Magnesium 2.1. Liver function is normal. C-reactive protein less than 0.2 total protein 7.2 albumin fraction 3.5 urinalysis reveals no signs of infection. Patient has gotten down most of his oral contrast. States so far his abdominal pain is no worse than it was. 09/08/20 09:55 Differential on the white count is 74% neutrophils and 5% bands cells 09/08/20 10:15 patient is experiencing increased left lower quadrant lower abdominal pain after ingestion of the IV contrast. We will give him Dilaudid 1 mg IV for pain relief. He will be going to the CT suite shortly. 09/08/20 11:11 CT scan of the abdomen pelvis has been performed with IV and oral contrast. Visualized portions of the lower lung lopez are clear. Does have a mild hiatal hernia. Liver contains a cystic lesion right lobe unchanged from previous CT. Spleen appears normal. Pancreas appears normal. There are multiple cystic lesions in both kidneys particularly on the right with a large peripelvic cyst . There is a large cyst of the inferior portion of the left kidney as well. Adrenal glands appear normal. Bowel shows scattered squished stool throughout the colon. There are multiple diverticuli throughout the descending and sigmoid colon. There is a very mild area of active diverticulitis at the descending colon sigmoid junction. No retroperitoneal adenopathy appreciated. 09/08/20 12:02 radiologist report is now available on the CT scan of the abdomen pelvis is done with IV and oral contrast. 1 cm cyst posterior right lobe of liver. Numerous other less than 1 cm too small to characterize hepatic hypodensities most likely cysts as well. Gallbladder is normal with no calcified stones. No ductal dilatation. Pancreas is normal with no ductal dilatation. Spleen is normal. Adrenal glands were normal with no masses. Mild to moderate right renal collecting system dilatation with prominent right renal pelvis right ureter is normal in caliber. Stomach and bowel revealed numerous colonic diverticula. Long segment of colonic wall thickening beginning along the distal transverse colon involving the left colon and sigmoid colon no evidence of appendicitis unremarkable intraperitoneal space with no free air or fluid collections. Due to the long segment of colon involved 1 has to consider diagnosis of other possible etiologies i.e. inflammatory versus infectious. I will recommend to the patient that he needs a colonoscopy in 6 to 8 weeks time. Departure - Departure Time of Disposition: 11:58 Disposition: Home, Self-Care 01 Condition: Fair Clinical Impression: Nonspecific colitis Diverticulitis large intestine Qualifiers: Diverticulitis bleeding: without bleeding Diverticulitis complication: without perforation or abscess Qualified Code(s): K57.32 - Diverticulitis of large intestine without perforation or abscess without bleeding - Discharge Information *PRESCRIPTION DRUG MONITORING PROGRAM REVIEWED*: Not Applicable *COPY OF PRESCRIPTION DRUG MONITORING REPORT IN PATIENT CHARLI: Not Applicable Prescriptions: metroNIDAZOLE [Flagyl] 500 mg PO Q8H #21 tab levoFLOXacin [Levaquin] 500 mg PO DAILY #9 tab Instructions: Diverticulitis, [id number] Referrals: PCP,None [Primary Care Provider] - Forms: ED Department Discharge Additional Instructions: Evaluation in the emergency room today in regards to persistent and gradually worsening left lower quadrant suprapubic abdominal pain over the last week or more. The CT scan done of the abdomen reveals a fairly long segment of left- sided colon that is thickened suggesting inflammation of the wall of the colon compatible with a nonspecific colitis which can be from inflammation or infectious. There are multiple diverticuli as well with evidence of mild diverticulitis at the descending colon and sigmoid colon junction. Treatment is antibiotic therapy. First doses of medicine were given in the ED with Levaquin 750 mg given intravenously and oral Flagyl 500 mg. He will need to take a second oral Flagyl tablet tonight for bed with a little something in your stomach. The next Levaquin tablet will be taken tomorrow morning and should be taken daily for another 9 days. Flagyl is taken 3 times daily for 7 days to clear up infection completely. Expect gradual improvement and reduction in diarrhea and pain over the next 72 hours. If pain worsens you would need to return to the ED. I would suggest that you pursue a colonoscopy sometime in the next 6 to 8 weeks to explore the inner lining of your large bowel to see if there is a component of ulcerative colitis. Sepsis Event Note (ED) - Focused Exam Vital Signs: Vital Signs Temp Pulse Resp BP Pulse Ox 09/08/20 08:10 36.8 C 59 L 18 130/82 96 - My Orders Last 24 Hours: My Active Orders 09/08/20 08:28 Blood Culture x2 Reflex Set [OM.PC] Stat 09/08/20 08:29 Abdomen Pelvis w Cont [CT] Stat 09/08/20 08:30 Dextrose 5%-0.9% NaCl [Dextrose 5%-Normal Saline] 1,000 ml IV ASDIRECTED 09/08/20 08:42 EKG Documentation Completion [RC] STAT 09/08/20 08:51 CULTURE BLOOD [BC] Stat 09/08/20 09:02 CULTURE BLOOD [BC] Stat - Assessment/Plan Last 24 Hours: My Active Orders 09/08/20 08:28 Blood Culture x2 Reflex Set [OM.PC] Stat 09/08/20 08:29 Abdomen Pelvis w Cont [CT] Stat 09/08/20 08:30 Dextrose 5%-0.9% NaCl [Dextrose 5%-Normal Saline] 1,000 ml IV ASDIRECTED 09/08/20 08:42 EKG Documentation Completion [RC] STAT 09/08/20 08:51 CULTURE BLOOD [BC] Stat 09/08/20 09:02 CULTURE BLOOD [BC] Stat
[2020-09-08] MEDS ORDERED: Levofloxacin/Dextrose 5%-Water 750 MG in Premix Bag 1 BAG IV ONE (08:38)
[2020-09-08] MEDS ORDERED: HYDROmorphone 1 MG/ML Syringe IVPUSH ONE (10:15)
[2020-09-08] MEDS ORDERED: metroNIDAZOLE 500 MG Tab PO ONE (11:57)
--- NOTE | 2020-09-08 17:04 | CT ---
CT abdomen and pelvis Technique: Multiple axial sections were obtained from above the dome of the diaphragm inferiorly through the pubic symphysis. Intravenous contrast was utilized as well as oral contrast. Reconstructed coronal and sagittal images were obtained. Delayed images were also obtained from above the iliac crest inferiorly through the pubic symphysis. Comparison: Prior CT abdomen and pelvis study of 05/17/17. Findings: Posterior lung bases show atelectasis on both sides. Several scattered small low density lesions are seen within the right and left lobes of the liver. These have increased in number from prior exam as well as some increasing in size. Largest finding measures approximately 1.1 cm in size. These findings are nonspecific but given the patient's age are most likely due to small cysts. Spleen size is normal. Adrenal glands show no nodule. Pancreas shows no discrete abnormality. Gallbladder contains no calcified gallstones. Cysts are noted within both kidneys. Largest cyst measures approximately 3.8 cm. Dilated right renal pelvis is seen which is an interval change from prior exam. Delayed images show contrast within both distal ureters and within the bladder. Diffuse bowel wall thickening is seen within the transverse, descending and sigmoid regions. Diverticuli are seen within the sigmoid regions. Findings most likely represent prominent colitis. Type of colitis is nonspecific on this exam. Diffuse wall thickening is noted within the bladder which presumably represents diffuse cystitis. Prostate gland shows a calcification. Appendix is seen which is normal. No bowel dilatation is seen. Bone window settings were reviewed which show scattered degenerative change throughout the spine. Joint space narrowing is seen within both hips. Cystic change is noted within both lateral femoral heads believed to represent degenerative change. Degenerative change is also noted within both sacroiliac joints. No acute osseous finding is seen. Impression: 1. Diffuse bowel wall thickening within the transverse, descending and sigmoid regions. This is compatible with a diffuse colitis which is nonspecific on this exam. 2. Prominent bladder wall thickening most likely representing cystitis. 3. Cysts within both kidneys. Dilated right renal pelvis is noted which is an interval change from prior CT exam. This does not appear to cause any obstruction as contrast is noted on delayed images within the more distal ureters. 4. Other findings believed to be incidental as noted above. Diagnostic code #3 I agree with preliminary report from [facility], finalized on 09/08/20, 12:58 PM CDT, code 1
== END 2020-09-08 12:20 | disposition home or self-care (01) ==
LOC: JD.ED 08:01
DX: K57.32 Diverticulitis of large intestine without perforation or abscess without bleeding (principal); K52.9 Noninfective gastroenteritis and colitis, unspecified; R94.31 Abnormal electrocardiogram [ECG] [EKG]; I48.91 Unspecified atrial fibrillation
CPT/HCPCS: 36415; 74177; 80053; 81001; 83605; 83690; 83735; 85007; 85027; 86140; 87040; 93005; 96365; 96366; 96375; 99284; A9270; J1170; J1956; J2765; J7042; 93010

== ENCOUNTER 2023-05-30 07:35 | Emergency (ER) | payer BC ==
[2023-05-30] MEDS: Dextrose 5%-0.9% NaCl 1,000 ML IV SCH (08:23)
[2023-05-30 08:27] LABS: BASOPHILS PERCENT AUTO 0.2 % (0.0-1.0); EOSINOPHILS ABSOLUTE AUTO 0.1 K/mm3 (0.0-0.4); EOSINOPHILS PERCENT AUTO 1.5 % (0.0-6.0); HEMATOCRIT 36.6 % (42.0-52.0); HEMOGLOBIN 13.2 gm/dl (14.0-18.0); IMMATURE GRAN ABSOLUTE AUTO 0.03 K/mm3 (0.00-0.05); IMMATURE GRAN PERCENT AUTO 0.3 % (0.0-0.4); LYMPHOCYTES ABSOLUTE AUTO 1.3 K/mm3 (1.0-4.8); LYMPHOCYTES PERCENT AUTO 15.4 % (24.0-44.0); MEAN CORPUSCULAR HEMOGLOBIN 31.4 pg (28.0-32.0); MEAN CORPUSCULAR HGB CONC 36.1 g/dl (32.0-36.0); MEAN CORPUSCULAR VOLUME 87.1 fl (83.0-99.0); MEAN PLATELET VOLUME 9.5 fl (9.4-12.4); MONOCYTES ABSOLUTE AUTO 0.5 K/mm3 (0.0-0.8); MONOCYTES PERCENT AUTO 5.6 % (0.0-8.0); NEUTROPHILS ABSOLUTE AUTO 6.6 K/mm3 (1.8-7.7); PLATELET COUNT,PLT 185 K/mm3 (150-400); WHITE BLOOD CELL COUNT,WBC 8.63 K/mm3 (3.9-11.3)
[2023-05-30 08:51] LABS: INR 0.98; PROTHROMBIN TIME 10.5 SECONDS (9.7-12.0)
[2023-05-30 08:56] LABS: A/G RATIO 0.8 (1-2); ALBUMIN 3.3 g/dl (3.4-5.0); ANION GAP 14.7 (5-15); BILIRUBIN TOTAL 0.5 mg/dL (0.2-1.0); BUN/CREATININE RATIO 15.6 (14-18); C-REACTIVE PROTEIN 0.37 mg/dL (<0.30); CALCIUM 8.9 mg/dL (8.5-10.1); CREATININE 0.9 mg/dL (0.7-1.3); EST CRCL DRUG DOSING (CG) 94.6 mL/min; MAGNESIUM 1.8 mg/dL (1.8-2.4); POTASSIUM,K 3.7 mEq/L (3.5-5.1); PROTEIN TOTAL,TP 7.5 g/dl (6.4-8.2)
[2023-05-30] MEDS: Metoclopramide 10 MG/2 ML SDV IVPUSH ONE (09:40)
[2023-05-30] MEDS: diphenhydrAMINE 50 MG/ML SDV IVPUSH ONE (09:42)
[2023-05-30] MEDS: Diatrizoate Meglumine/Diatrizoate Sodium 37% 120 ML Bottle PO ONE (10:21)
[2023-05-30] MEDS: Sodium Chloride 0.9% 10 ML Syringe FLUSH ONE (10:21)
[2023-05-30] MEDS: Iopamidol 612 MG/ML 100 ML Bottle IVPUSH ONE (10:21)
[2023-05-30 11:10] LABS: APPEARANCE,URINE CLEAR (Clear); BILIRUBIN,URINE NEGATIVE (Negative); COLOR,URINE YELLOW (Yellow); GLUCOSE,URINE 1+ (Negative); KETONES,URINE NEGATIVE (Negative); LEUKOCYTE ESTERASE,URINE NEGATIVE (Negative); NITRITE,URINE NEGATIVE (Negative); OCCULT BLOOD,URINE NEGATIVE (Negative); PROTEIN,URINE NEGATIVE (Negative); UROBILINOGEN,URINE 0.2 (0.2-1.0)
[2023-05-30 11:19] LABS: AMORPHOUS SEDIMENT,URINE MODERATE /hpf (NOT SEEN); BACTERIA,URINE RARE /hpf (FEW); EPITHELIAL CELLS,URINE NOT SEEN /hpf (0-5); MUCUS,URINE RARE /hpf (FEW); RBC,URINE NOT SEEN /hpf (0-5); WBC,URINE NOT SEEN /hpf (0-5)
[2023-05-30] MEDS: cefTRIAXone 2 GM in Sodium Chloride 0.9% 100 ML IV ONE (11:24)
[2023-05-30] MEDS: metroNIDAZOLE/Normal Saline 500 MG in Premix Bag 1 BAG IV ONE (12:00)
== END 2023-05-30 13:40 | disposition home or self-care (01) ==
LOC: JD.ED 07:35 → SUPCPDRO 07:35 → JD.ED 13:40
DX: K57.32 Diverticulitis of large intestine without perforation or abscess without bleeding (principal); R11.14 Bilious vomiting; Z79.82 Long term (current) use of aspirin; Z79.899 Other long term (current) drug therapy
CPT/HCPCS: 36415; 71045; 74018; 74177; 80053; 81001; 83605; 83690; 83735; 83880; 85025; 85610; 85730; 86140; 87040; 93005; 96361; 96365; 96367; 96375; 99284; J0696; J1200; J1836; J2765; J3490; J7042; Q9963; Q9967

== ENCOUNTER 2023-08-11 05:51 | Emergency (ER) | payer BC ==
[2023-08-11] MEDS: Ondansetron 4 MG/2 ML SDV IVPUSH ONE (06:27)
[2023-08-11] MEDS: Sodium Chloride 0.9% 1,000 ML IV SCH (06:27)
[2023-08-11] MEDS: Sodium Chloride 0.9% 10 ML Syringe FLUSH PRN ×2 (06:28→08:56)
[2023-08-11] MEDS: Famotidine 20 MG/2 ML SDV IVPUSH ONE (06:28)
[2023-08-11 06:44] LABS: BASOPHILS PERCENT AUTO 0.4 % (0.0-1.0); EOSINOPHILS ABSOLUTE AUTO 0.2 K/mm3 (0.0-0.4); EOSINOPHILS PERCENT AUTO 2.3 % (0.0-6.0); HEMATOCRIT 39.2 % (42.0-52.0); HEMOGLOBIN 13.7 gm/dl (14.0-18.0); IMMATURE GRAN ABSOLUTE AUTO 0.02 K/mm3 (0.00-0.05); IMMATURE GRAN PERCENT AUTO 0.3 % (0.0-0.4); LYMPHOCYTES ABSOLUTE AUTO 1.3 K/mm3 (1.0-4.8); LYMPHOCYTES PERCENT AUTO 16.9 % (24.0-44.0); MEAN CORPUSCULAR HEMOGLOBIN 30.8 pg (28.0-32.0); MEAN CORPUSCULAR HGB CONC 34.9 g/dl (32.0-36.0); MEAN CORPUSCULAR VOLUME 88.1 fl (83.0-99.0); MEAN PLATELET VOLUME 10.2 fl (9.4-12.4); MONOCYTES ABSOLUTE AUTO 0.6 K/mm3 (0.0-0.8); MONOCYTES PERCENT AUTO 7.2 % (0.0-8.0); NEUTROPHILS ABSOLUTE AUTO 5.7 K/mm3 (1.8-7.7); NEUTROPHILS PERCENT AUTO 72.9 % (41.0-71.0); PLATELET COUNT,PLT 176 K/mm3 (150-400); RED BLOOD CELL COUNT 4.45 M/mm3 (4.52-5.90); WHITE BLOOD CELL COUNT,WBC 7.83 K/mm3 (3.9-11.3)
[2023-08-11 07:07] LABS: A/G RATIO 0.9 (1-2); ALANINE AMINOTRANSFERASE,ALT 19 U/L (16-63); ALBUMIN 3.4 g/dl (3.4-5.0); ALKALINE PHOSPHATASE 60 U/L (46-116); ANION GAP 15.7 (5-15); ASPARTATE AMNIOTRANSFERASE,AST 11 U/L (15-37); BILIRUBIN TOTAL 0.6 mg/dL (0.2-1.0); BLOOD UREA NITROGEN,BUN 12 mg/dL (7-18); BUN/CREATININE RATIO 13.3 (14-18); CALCIUM 8.8 mg/dL (8.5-10.1); CARBON DIOXIDE,CO2 22 mEq/L (21-32); CHLORIDE,CL 104 mEq/L (98-107); CREATININE 0.9 mg/dL (0.7-1.3); ESTIMATED GFR 97 mL/min (>60); GLUCOSE RANDOM 121 mg/dL (70-99); LIPASE 34 U/L (16-77); POTASSIUM,K 3.7 mEq/L (3.5-5.1); PROTEIN TOTAL,TP 7.1 g/dl (6.4-8.2); SODIUM,NA 138 mEq/L (136-145)
[2023-08-11 07:12] LABS: TROPONIN I HIGH SENSITIVITY < 4 pg/mL (<=76)
[2023-08-11] MEDS: Iopamidol 612 MG/ML 100 ML Bottle IVPUSH ONE (08:56)
[2023-08-11] MEDS: Aluminum Hydroxide/Magnesium Hydroxide/Simethicone Susp 30 ML Cup PO ONE (09:54)
== END 2023-08-11 10:09 | disposition home or self-care (01) ==
LOC: JD.ED 05:51
DX: K57.30 Diverticulosis of large intestine without perforation or abscess without bleeding (principal); K29.70 Gastritis, unspecified, without bleeding; Z79.82 Long term (current) use of aspirin; Z79.899 Other long term (current) drug therapy
CPT/HCPCS: 36415; 74177; 80053; 83690; 84484; 85025; 96361; 96374; 96375; 99284; A9270; J2405; J3490; J7030; Q9967

== ENCOUNTER 2024-09-26 21:14 | Emergency (ER) | payer BC ==
[2024-09-26] MEDS ORDERED: Sodium Chloride 0.9% 10 ML Syringe FLUSH PRN (21:18)
[2024-09-26 21:25] LABS: BASOPHILS ABSOLUTE AUTO 0.1 K/mm3 (0.0-0.2); BASOPHILS PERCENT AUTO 0.3 % (0.0-1.0); EOSINOPHILS ABSOLUTE AUTO 0.2 K/mm3 (0.0-0.4); EOSINOPHILS PERCENT AUTO 1.0 % (0.0-6.0); IMMATURE GRAN ABSOLUTE AUTO 0.09 K/mm3 (0.00-0.05); IMMATURE GRAN PERCENT AUTO 0.5 % (0.0-0.4); LYMPHOCYTES ABSOLUTE AUTO 1.5 K/mm3 (1.0-4.8); LYMPHOCYTES PERCENT AUTO 8.8 % (24.0-44.0); MEAN PLATELET VOLUME 9.7 fl (9.4-12.4); MONOCYTES ABSOLUTE AUTO 1.2 K/mm3 (0.0-0.8); MONOCYTES PERCENT AUTO 7.3 % (0.0-8.0); NEUTROPHILS ABSOLUTE AUTO 13.9 K/mm3 (1.8-7.7); NEUTROPHILS PERCENT AUTO 82.1 % (41.0-71.0); NRBC ABSOLUTE 0.00 (0.00-0.02); NRBC PERCENT 0.0 % (0.0-0.2); PLATELET COUNT,PLT 201 K/mm3 (150-400); RED BLOOD CELL COUNT 4.13 M/mm3 (4.52-5.90); WHITE BLOOD CELL COUNT,WBC 16.93 K/mm3 (3.9-11.3)
[2024-09-26 21:45] LABS: A/G RATIO 1.0 (1-2); ALANINE AMINOTRANSFERASE,ALT 40.0 U/L (16-63); ASPARTATE AMNIOTRANSFERASE,AST 33.0 U/L (15-37); BILIRUBIN TOTAL 0.5 mg/dL (0.2-1.0); BLOOD UREA NITROGEN,BUN 24.0 mg/dL (7-18); CARBON DIOXIDE,CO2 26.0 mEq/L (21-32); CHLORIDE,CL 107.0 mEq/L (98-107); CREATININE 1.0 mg/dL (0.7-1.3); EST CRCL DRUG DOSING (CG) 89.05 mL/min; ESTIMATED GFR 85.0 mL/min (>60); GLUCOSE RANDOM 118.0 mg/dL (70-99); POTASSIUM,K 4.3 mEq/L (3.5-5.1); PROTEIN TOTAL,TP 7.1 g/dl (6.4-8.2); SODIUM,NA 142.0 mEq/L (136-145)
[2024-09-26 21:46] LABS: ETHANOL BLOOD MEDICAL 0.0 gm% (0.00)
[2024-09-26] MEDS: Iopamidol 612 MG/ML 100 ML Bottle IVPUSH ONE (21:46)
== END 2024-09-26 23:23 | disposition home or self-care (01) ==
LOC: JD.ED 21:14
DX: S42.022A Displaced fracture of shaft of left clavicle, initial encounter for closed fracture (principal); V86.99XA Unspecified occupant of other special all-terrain or other off-road motor vehicle injured in nontraffic accident, initial encounter; Z79.899 Other long term (current) drug therapy; Z79.82 Long term (current) use of aspirin
CPT/HCPCS: 36415; 70450; 71260; 72125; 73030; 74177; 80053; 80307; 83690; 85025; 96374; 99285; Q9967; 99284; J1171